=== PATIENT | female | born 1955 | race Caucasian/White ===

== ENCOUNTER 2016-12-21 06:06 | Inpatient (IN) | payer OTHER ==
[~2016-12-21] VITALS: Ht 149.9 cm; Wt 73.0 kg
[2016-12-21] MEDS ORDERED: MORPHINE SULFATE 4 MG/ML SYR IM/IVP PRN (07:45)
[2016-12-21] MEDS ORDERED: ONDANSETRON 4 MG/2 ML VIAL IVP PRN ×2 (07:45→09:30)
[2016-12-21] MEDS ORDERED: CLOP75TA55 PO (08:10)
[2016-12-21] MEDS ORDERED: ACET-2619 PO (08:10)
[2016-12-21] MEDS ORDERED: COL100L GT (08:10)
[2016-12-21] MEDS ORDERED: MECL-272 PO (08:10)
[2016-12-21] MEDS ORDERED: ALPOS OP (08:10)
[2016-12-21] MEDS ORDERED: LISI10TA11 PO (08:10)
[2016-12-21] MEDS ORDERED: DOCU-299 PO (08:10)
[2016-12-21] MEDS ORDERED: ASPI81CT89 PO (08:10)
[2016-12-21] MEDS ORDERED: ATOR20TA PO (08:10)
[2016-12-21] MEDS ORDERED: METF500T PO (08:10)
[2016-12-21] MEDS ORDERED: XALOS OP (08:10)
[2016-12-21] MEDS ORDERED: GABA300C PO (08:10)
[2016-12-21] MEDS ORDERED: ROCURONIUM 50 MG/5 ML VIAL IV ONE (08:25)
[2016-12-21] MEDS ORDERED: ONDANSETRON 4 MG/2 ML VIAL IVP ONE (08:25)
[2016-12-21] MEDS ORDERED: SUCCINYLCHOLINE CHLORIDE 200 MG/10 ML VIAL IV ONE (08:25)
[2016-12-21] MEDS ORDERED: SEVOFLURANE 250 ML BTL INH ONE (08:25)
[2016-12-21] MEDS ORDERED: PROPOFOL 200 MG/20 ML VIAL IV ONE (08:25)
[2016-12-21] MEDS ORDERED: DEXAMETHASONE 4 MG/ML VIAL IVP ONE (08:25)
[2016-12-21] MEDS ORDERED: MIDAZOLAM 2 MG/2 ML VIAL ONE (08:32)
[2016-12-21] MEDS ORDERED: fentaNYL 0.05 MG/ML VIAL ONE (08:32)
[2016-12-21] MEDS ORDERED: MEPERIDINE 50 MG/ML SYR ONE (08:32)
[2016-12-21] MEDS: BUPIVACAINE-MPF 0.5% 30 ML VIAL INJ ONE ×2 (09:15→10:13)
[2016-12-21] MEDS ORDERED: diphenhydrAMINE 50 MG/ML VIAL IVP PRN (09:30)
[2016-12-21] MEDS ORDERED: BLOOD GLUCOSE MONITORING 1 DEV DEV FS ONE (09:30)
[2016-12-21] MEDS ORDERED: MEPERIDINE 25 MG/ML SYR IVP PRN (09:30)
[2016-12-21] MEDS ORDERED: HYDROmorphone 1 MG/ML AMP IVP PRN (09:30)
[2016-12-21 10:00] VITALS: BP 146/78
--- NOTE | 2016-12-21 10:00 | NUR ---
PT ARRIVED TO UNIT FROM OR, PT IS AAOX4, ON ROOM AIR, IV TO LEFT WRIST PATENT AND INTACT, ABD DRESSING DRY AND INTACT, INITIAL ASSESSMENT COMPLETED, REVIEWED PLAN OF CARE WITH PT, PT VERBALIZED UNDERSTANDING ALL SAFETY PRECAUTIONS MET. CALL LIGHT WITHIN REACH. WILL CONTINUE TO MONITOR.
[2016-12-21] MEDS: LACTATED RINGERS 1,000 ML IV SCH ×2 (10:10→18:13)
--- NOTE | 2016-12-21 12:10 | NUR ---
CHECKED IN ON PT, PT CURRENTLY SLEEPING, EASILY AWAKEN, CALL LIGHT WITHIN REACH, WILL CONT TO MONITOR.
[2016-12-21] MEDS: ACETAMINOPHEN/CODEINE 300/30MG 1 TAB PO PRN ×2 (14:05→18:14)
--- NOTE | 2016-12-21 14:09 | NUR ---
PT COMPLAIN OF RIGHT LOWER ABD PAIN, MEDICATED PER MD ORDERS, ALL NEEDS MET, PT CURRENTLY WATCHING TV, WILL CONT TO MONITOR.
[2016-12-21 16:09] VITALS: BP 132/80
--- NOTE | 2016-12-21 16:25 | NUR ---
CHECKED IN ON PT, PT CURRENTLY RESTING. NO S/S OF DISTRESS NOTED.
--- NOTE | 2016-12-21 19:25 | NUR ---
ENDORSED PLAN OF CARE TO NIGHT NURSE, PT IN STABLE CONDITION.
--- NOTE | 2016-12-21 19:50 | NUR ---
RECEIVED REPORT FROM CHARGE NURSE. PT IS AAOX4. IV TO LEFT WRIST PATENT AND INTACT. ABD DRESSING DRY AND INTACT. PT ON ROOM AIR. NO C/O PAIN. DISCUSSED PLAN OF CARE TO PT. PT VERBALIZED UNDERSTANDING. SAFETY PRECAUTION IN PLACE. CALL LIGHT WITHIN REACH. WILL CONTINUE TO MONITOR.
--- NOTE | 2016-12-21 22:00 | NUR ---
PT IS SLEEPING. NO SIGNS OF PAIN NOTED. CALL LIGHT WITHIN REACH.
[2016-12-22] VITALS: BP 114/68
--- NOTE | 2016-12-22 00:04 | NUR ---
PT SLEEPING. NO SIGNS OF DISTRESS. CALL LIGHT WITHIN REACH.
[2016-12-22] MEDS: LACTATED RINGERS 1,000 ML IV SCH ×3 (00:20→17:02)
[2016-12-22] MEDS: MORPHINE SULFATE 4 MG/ML SYR IM/IVP PRN ×2 (00:23→17:02)
--- NOTE | 2016-12-22 02:30 | NUR ---
PATIENT SLEEPING. NO SIGNS OF PAIN. CALL LIGHT WITHIN REACH. WILL CONTINUE TO MONITOR.
--- NOTE | 2016-12-22 05:22 | NUR ---
PT AWAKE. LYING IN BED COMFORTABLY. NO C/O PAIN. CALL LIGHT WITHIN REACH.
--- NOTE | 2016-12-22 06:53 | NUR ---
REMOVED GILL CATH. PT DENIES PAIN.
--- NOTE | 2016-12-22 07:22 | NUR ---
ENDORSED PT TO DAY SHIFT NURSE. PT IN STABLE CONDITION.
--- NOTE | 2016-12-22 07:24 | NUR ---
RECEIVED BEDSIDE REPORT FROM NIGHT RN. PT RESTING IN BED. AAOX4. NO S/S OF ACUTE DISTRESS. PT DENIES PAIN. IV SITE PATENT AND INTACT. DRESSING TO ABDOMEN DRY AND INTACT. PLAN OF CARE DISCUSSED. PT VERBALIZED UNDERSTANDING. CALL LIGHT WITHIN REACH. SAFETY MEASURES ENSURED. WILL CONTINUE TO MONITOR.
[2016-12-22 08:00] VITALS: BP 117/67
--- NOTE | 2016-12-22 09:08 | NUR ---
PT RESTING IN BED. NO S/S OF ACUTE DISTRESS. PT DENIES PAIN. CALL LIGHT WITHIN REACH. SAFETY MEASURES ENSURED. WILL CONTINUE TO MONITOR.
--- NOTE | 2016-12-22 09:52 | NUR ---
PATIENT HAS BEEN SCREENED AND CATEGORIZED MODERATE NUTRITION RISK. PATIENT WILL BE SEEN WITHIN 3-5 DAYS OF ADMISSION. 12/23/16-12/25/[address]
--- NOTE | 2016-12-22 10:08 | NUR ---
CM NOTE INITIAL REVIEW FAXED TO [facility] [phone] MICHAEL PRYORA # [phone]
--- NOTE | 2016-12-22 11:49 | NUR ---
PT SITTING IN CHAIR. NO S/S OF ACUTE DISTRESS. PT DENIES PAIN. IV SITE PATENT AND INTACT. CALL LIGHT WITHIN REACH. SAFETY MEASURES ENSURED.W ILL CONTINUE TO MONITOR.
--- NOTE | 2016-12-22 15:03 | NUR ---
PT RESTING IN BED. DAUGHTER AT BEDSIDE. NO S/S OF ACUTE DISTRESS. PT DENIES PAIN. CALL LIGHT WITHIN REACH. SAFETY MEASURES ENSURED. WILL CONTINUE TO MONITOR.
[2016-12-22 16:00] VITALS: BP 143/77
--- NOTE | 2016-12-22 19:06 | NUR ---
ENDORSED PLAN OF CARE TO NIGHT RN. PT REMAINS STABLE.
--- NOTE | 2016-12-22 19:07 | NUR ---
RECEIVED REPORT FROM DAY NURSE AT THE BEDSIDE, PT IN STABLE CONDITION, AAOX4 ON RA, IV TO L WRIST 22G INFUSING WELL. ABD INCISION S/P EX-LAP, DRESSING DRY AND INTACT. RESPIRATIONS ARE EVEN AND UNLABORED, BOWEL SOUNDS PRESENT. INITIAL ASSESSMENT COMPLETED, PLAN OF CARE DISCUSSED WITH PT, VERBALIZED UNDERSTANDING. ALL SAFETY PRECAUTIONS MET, CALL LIGHT WITHIN REACH, WILL CONTINUE TO MONITOR.
[2016-12-22] MEDS ORDERED: ONDANSETRON 4 MG/2 ML VIAL ONE (20:20)
[2016-12-23] VITALS: BP 136/80
[2016-12-23] MEDS ORDERED: ONDANSETRON 4 MG/2 ML VIAL ONE (00:43)
[2016-12-23] MEDS: ACETAMINOPHEN/CODEINE 300/30MG 1 TAB PO PRN (00:46)
--- NOTE | 2016-12-23 00:52 | NUR ---
WILLIAM FOREMAN PTS O2 SAT AT 85% Addendum: 12/23/16 at 0055 by Carol Art RN PT IN STABLE CONDITION. PT STATES, "I FEEL LIKE I AM BREATHING FINE." PT STATES, "I AM FEELING A LITTLE SHORT OF BREATH BUT IT IS BECAUSE I AM IN PAIN BUT I DO NOT WANT TO TAKE PAIN MEDICATION." PT EDUCATED ON BENEFITS AND RISKS BUT PT STILL REFUSES PAIN MEDICATION
--- NOTE | 2016-12-23 00:53 | NUR ---
DR Dilcia FOREMAN PAGED BACK AND MADE AWARE, WILL CARRY OUT ORDERS
--- NOTE | 2016-12-23 00:55 | NUR ---
PT TEMP 100.4 WILL ADMINISTER MEDICATION PER ORDERS AND PUT COOLING MEASURES IN PLACE
--- NOTE | 2016-12-23 00:55 | NUR ---
PT O2 SAT 96% NOW
[2016-12-23] MEDS: LACTATED RINGERS 1,000 ML IV SCH ×2 (01:02→09:40)
--- NOTE | 2016-12-23 01:40 | NUR ---
PT TEMP 99.5, COOLING MEASURES IN PLACE. WILL CONTINUE TO MONITOR
--- NOTE | 2016-12-23 07:17 | NUR ---
GAVE REPORT TO AM NURSE AT THE BEDSIDE FOR CONTINUITY OF CARE. PT IN STABLE CONDITION. NO S/S OF DISTRESS NOTED
--- NOTE | 2016-12-23 07:20 | NUR ---
RECEIVED BEDSIDE REPORT FROM EDWINA VIERA, PT RESTING IN BED, A/O X 4, NO S/S OF ACUTE DISTRESS, PT DENIES PAIN, DRESSING TO ABD DRY AND INTACT, PT ON 2L VIA NC, IV SITE PATENT AND INTACT, PLAN OF CARE DISCUSSED WITH PT, PT VERBALIZED UNDERSTANDING, CALL LIGHT WITHIN REACH, SAFETY MEASURES ENSURED, WILL CONT TO MONITOR.
[2016-12-23 08:00] VITALS: BP 153/80
[2016-12-23 08:55] LABS: BASOPHILS # (AUTO) 0.1 K/uL (0.00-0.22); BASOPHILS % (AUTO) 0.7 % (0.0-2.0); EOSINOPHILS # (AUTO) 0.1 K/uL (0-0.4); HEMATOCRIT 24.1 % (36-48); HEMOGLOBIN 8.1 g/dL (12.0-16.0); LYMPHOCYTES # (AUTO) 1.5 K/uL (2.5-16.5); LYMPHOCYTES % (AUTO) 13.3 % (20.5-51.1); MEAN CORPUSCULAR HEMOGLOBIN 30 pg (27-31); MEAN CORPUSCULAR HGB CONC 34 g/dL (33-37); MEAN CORPUSCULAR VOLUME 90 fL (80-94); MONOCYTES # (AUTO) 1.3 K/uL (0.8-1.0); MONOCYTES % (AUTO) 11.9 % (1.7-9.3); NEUTROPHILS # (AUTO) 8.1 K/uL (1.8-7.7); NEUTROPHILS % (AUTO) 73.1 % (42.2-75.2); PLATELET COUNT (AUTO) 307 K/uL (140-450); RED BLOOD CELL COUNT(AUTO) 2.68 MIL/uL (4.20-5.40); RED CELL DISTRIBUTION WIDTH 12.4 % (11.6-13.7); WHITE BLOOD COUNT (AUTO) 11.1 K/uL (4.8-10.8)
[2016-12-23 09:04] LABS: ANION GAP 8.5 (8-16); CARBON DIOXIDE 29.6 mmol/L (21-32); CREATININE 0.9 mg/dL (0.6-1.3); POTASSIUM 4.1 mmol/L (3.5-5.1)
--- NOTE | 2016-12-23 10:00 | NUR ---
CM NOTE CONCURRENT REVIEW FAXED TO [facility] [phone] CM MURALI # [phone]
--- NOTE | 2016-12-23 11:23 | NUR ---
PT STATES SHE HAS PASSED GAS SINCE SURGERY, PT TOLERATING FOOD WELL, PT DENIES PAIN, PT UP AND AMBULATING TO CHAIR.
[2016-12-23 14:14] VITALS: BP 153/80
--- NOTE | 2016-12-23 15:57 | NUR ---
PT CLEARED FOR DISCHARGE. NO S/S OF ACUTE DISTRESS. PT DENIES PAIN. IV TAKEN OUT. TIP INTACT. DISCHARGE INSTRUCTIONS PROVIDED. PT VERBALIZED UNDERSTANDING. DAUGHTER AT BEDSIDE. PT REMAINS STABLE.
== END 2016-12-23 15:56 | disposition home or self-care (01) | DRG 513 ==
LOC: MDS 06:06 → MMU 06:06 → MTU 08:41 → UNDOADMIN 10:29 → MDS 10:29 → MTU 10:29
PROVIDERS: ADMIT Obstetrics & Gynecology; ATTEND Obstetrics & Gynecology
PROC: 0UB10ZZ Excision of Left Ovary, Open Approach (ICD-10-PCS; principal; 2016-12-21 07:30)
DX: N83.202 Unspecified ovarian cyst, left side (principal); I10 Essential (primary) hypertension; G89.29 Other chronic pain; R10.2 Pelvic and perineal pain; N73.6 Female pelvic peritoneal adhesions (postinfective); E11.9 Type 2 diabetes mellitus without complications; Z86.73 Personal history of transient ischemic attack (TIA), and cerebral infarction without residual deficits
CPT/HCPCS: 36415; 71010; 80048; 82948; 85025; 86870; 86886; 86900; 86901; 87081; 93005; J0330; J0690; J1100; J2175; J2250; J2270; J2405; J2704; J3010; J3490; J7030; J7060; J7120; Q0092